=== PATIENT | female | born 1985 | race Caucasian/White ===

== ENCOUNTER → 2016-08-13 07:20 | Observation (INO) ==
--- NOTE | 2016-08-13 07:14 | OB Labor Progress Note ---
Date of Encounter: 08/13/16 Time of Encounter: 07:13 Labor Progress Note - Plan Plan: patient is a 30 y/o @ 30+ weeks who presented for a labor eval, she was evaluated and deemed not to be in labor. ok for discharge, FHT CAT 1.
== END | disposition home or self-care (01) ==
LOC: 1NENULAB
PROVIDERS: ADMIT Student in an Organized Health Care Education/Training Program; ATTEND Student in an Organized Health Care Education/Training Program

== ENCOUNTER 2016-08-14 09:55 | Inpatient (IN) ==
[2016-08-14] MEDS ORDERED: Famotidine 20 MG/2 ML VIAL IVP PRN (10:21)
[2016-08-14] MEDS ORDERED: Ondansetron 4 MG/2 ML VIAL IVP PRN (10:21)
[2016-08-14] MEDS ORDERED: Naloxone 0.4 MG/ML INJ IVP PRN (10:21)
[2016-08-14] MEDS ORDERED: *HR* Nalbuphine 20 MG/ML AMPUL IVP PRN (10:22)
[2016-08-14] MEDS ORDERED: Penicillin G Potassium 5,000,000 UNIT in D5% in Water (Mini-Bag+) 100 ML IVPB ONE (10:23)
--- NOTE | 2016-08-14 10:34 | OB/GYN History & Physical ---
Date of Encounter: 08/14/16 Time of Encounter: 10:28 Assessment and Plan (1) 38 weeks gestation of Current visit: Yes Status: Acute (2) SROM (spontaneous rupture of membranes) Current visit: Yes Status: Acute Admit for expectant mamagement. GBS positive: begin PCN ppx. Mildly elevated blood pressure on admission. Pt has not taken Metropolol today. Will get PIH labs. Epidural if requested. Will augment labor with Pitocin if needed. Anticpate . (3) Positive GBS test Current visit: Yes Status: Acute (4) Mitral valve prolapse of mother during Current visit: Yes Status: Acute (5) Chronic hypertension affecting Current visit: Yes Status: Acute History of Present Illness Chief complaint: leaking fluid HPI: Ms. Rea is a 30 year old female presenting at 38w1d with c/o leaking fluid. She report that she woke up around 0245 this am and was soaked with clear fluid. She has continued to leak intermittently since. She reports the fluid is colorless but cloudy with white particles. She has started having contractions also. No other complaints today. Good FM. Her blood type is A positive. Rubella immune. Serologies negative. Her glucola was 171 with a normal 3 hour GTT. GBBS is positive and pt is not allergic to PCN. Past Med Surg Social Fam HX - Past Medical History Medical history: other Psychiatric history: no psych history - Past Surgical History Surgical History: cholecystectomy - Social History Smoking Status: Never smoker Smokeless Tobacco Status: No Alcohol use: none Drug use: none - Family History Father Living Status: Still Living Obstetrical History - Pregnancies : 1 Para: 0 Medications and Allergies Metoprolol [Lopressor] 12.5 mg PO DAILY 08/13/16 [History] Ranitidine HCl [Zantac] 150 mg PO DAILY 08/13/16 [History] Allergies acetaminophen [From Percocet] Adverse Reaction (Verified 08/13/16 05:01) Hives albuterol Adverse Reaction (Verified 08/13/16 05:01) Seizure cefdinir [From Omnicef] Adverse Reaction (Verified 08/13/16 05:01) Hives Oxycodone [From Percocet] Adverse Reaction (Verified 08/13/16 05:01) Hives Review of System OB All systems PM: reviewed and no additional remarkable complaints except as stated Exam - Constitutional Constitutional: well developed, well nourished, no acute distress - HEENT HEENT: Mucus Membranes Moist - Lungs Respiratory exam: CTAB - Cardiovascular Cardiovascular exam: RRR, +S1, +S2 - Abdomen Abdomen: Present: gravid, non tender - Vulva Vulva: bilateral: normal - Vagina Vagina: Present: normal moisture - Cervix Dilation: 1 Effacement: 70 Station: -2 - Uterus Uterus exam: Present: normal size (EFW by leopolds 7 1/2 lbs) - Anus/Rectum Anus/Rectum: Present: normal perianal skin Results All other labs normal. - VTE Reasons for not Prescribing Prophylaxis: Treatment not Indicated - Low risk for VTE
[2016-08-14 11:00] LABS: Basophils % 0.2 %; Eosinophils % 0.3 %; Hematocrit 38.6 % (35.3-44.9); Hemoglobin 12.6 g/dL (11.5-15.4); Immature Granulocytes % 0.6 % (0-4); Lymphocytes # 1.8 K/mcL (0.6-4.6); Lymphocytes % 16.7 %; Mean Corpuscular HGB Conc 32.6 g/dL (31.6-35.5); Mean Corpuscular Hemoglobin 29.1 pg (28.0-33.3); Mean Corpuscular Volume 89.1 fL (83.0-100.0); Mean Platelet Volume 10.5 fL (9.4-12.4); Monocytes # 0.6 K/mcL (0.0-1.3); Monocytes % 5.4 %; Neutrophils # 8.3 K/mcL (1.6-8.9); Platelet Count 234 K/mcL (140-400); Red Blood Count 4.33 M/mcL (3.82-4.97); Red Cell Distribution Width 13.9 % (11.5-14.5); Segmented Neutrophils % 76.8 %
[2016-08-14 11:22] LABS: Alanine Aminotransferase 11 Units/L (0-55); Aspartate Amino Transferase 15 Units/L (5-34); BUN/Creatinine Ratio 13 (6-26); Blood Urea Nitrogen 10 mg/dL (7-20); Lactate Dehydrogenase 189 Units/L (159-327); Uric Acid 5.2 mg/dL (2.6-6.0); eGFR For African Americans > 60 (> 60); eGFR For Non-African Americans > 60 (> 60)
[2016-08-14] MEDS: Ringers Solution, Lactated 1,000 ML IVC SCH ×2 (11:25→19:42)
[2016-08-14] MEDS ORDERED: Oxytocin 20 units/ LR 1000 mL 20 UNIT/1,000 ML BAG IVC SCH (12:30)
--- NOTE | 2016-08-14 13:52 | OB Labor Progress Note ---
Date of Encounter: 08/14/16 Time of Encounter: 13:50 Labor Progress Note - Subjective Subjective: Pt reports increasing discomfort with contractions. - Cervix Cervix: 1/70/-2 - Heart Tones Heart Tones: Category I - Bowdens Bowdens: irregular, unable to assess with pt in lateral position. - Interventions Interventions: IUPC placed - Plan Plan: Continue to monitor and titrate pitocin. Continue GBS ppx. Epidural when requested. Anticipate .
[2016-08-14] MEDS ORDERED: Penicillin G Potassium 2,500,000 UNIT in D5% in Water 100 ML IVPB SCH (15:00)
[2016-08-14] MEDS: Penicillin G Potassium 2,500,000 UNIT in D5% in Water 100 ML IVPB SCH ×2 (15:31→19:42)
--- NOTE | 2016-08-14 16:35 | OB Labor Progress Note ---
Date of Encounter: 08/14/16 Time of Encounter: 16:33 Labor Progress Note - Subjective Subjective: Pt with severe pain at this time. Pain management options discussed. SHe is not a candidate for epidural due to herniated discs. Will plan for fentanyl. - Cervix Cervix: 2/90/-1 - Heart Tones Heart Tones: Category I - Interventions Interventions: FSE placed - Plan Plan: Continue to monitor. Anticipate .
[2016-08-14] MEDS ORDERED: *HR* FentaNYL (PF) 100 MCG/2 ML VIAL ONE ×3 (17:10→19:37)
[2016-08-14] MEDS: *HR* FentaNYL (PF) 100 MCG/2 ML VIAL IVP PRN ×2 (17:21→18:29)
[2016-08-14] MEDS ORDERED: *HR* FentaNYL (PF) 100 MCG/2 ML VIAL IVP PRN (19:32)
--- NOTE | 2016-08-14 21:15 | OB Labor Progress Note ---
Date of Encounter: 08/14/16 Time of Encounter: 21:10 Labor Progress Note - Subjective Subjective: Patient still doing well with her contractions. We are unable to get her the epidural all anesthesia have decided it is not in her best interest due to her history of potential herniated disks in her complaining of bilateral radiculopathy. We have been using fentanyl to try and control her pain is taken the edge off are not really helping. is having episodes of what looked like late decelerations but they will then resolve on their own. Contractions appeared to be adequate. She prefers to be sitting versus lying in bed try to encourage her to try to stay in the bed or knee-chest all the strip does not look reactive. - Cervix Cervix: 4-5/100/0 - Heart Tones Heart Tones: heart tones 120s 130s has lost variability patient did just recently received some fentanyl - [place]: Contractions every 2 minutes adequate - Plan Plan: We will continue close observation we will hold any additional fentanyl at this time until strip becomes more reassuring.
[2016-08-14 21:44] LABS: Protein/Creatinine Ratio,Urine 0.09 mg/mg (0-0.20)
[2016-08-14] MEDS ORDERED: Metoclopramide 10 MG/2 ML VIAL IVP PRN (21:45)
[2016-08-14] MEDS ORDERED: *HR* Propofol 200 MG/20 ML VIAL IVP ONE ×2 (21:50→21:54)
[2016-08-14] MEDS ORDERED: *HR* Morphine Sulfate/PF 5 MG/10 ML AMPUL ONE (21:51)
[2016-08-14] MEDS ORDERED: *HR* Succinylcholine 200 MG/10 ML VIAL IVP ONE (21:52)
[2016-08-14] MEDS ORDERED: *HR* Phenylephrine 10 MG/ML VIAL ONE (21:52)
[2016-08-14] MEDS ORDERED: EPHEDrine 50 MG/ML VIAL ONE (21:53)
[2016-08-14] MEDS ORDERED: Clindamycin 900 MG/50 ML 900 MG/50 ML IV.SOLN IVPB ONE (21:53)
[2016-08-14] MEDS ORDERED: *HR* Oxytocin 10 UNIT/ML VIAL IM ONE (21:54)
[2016-08-14] MEDS ORDERED: Ringers Solution, Lactated 1,000 ML ONE (21:55)
[2016-08-14] MEDS ORDERED: *HR* HYDROmorphone (PF) 1 MG/ML SYRINGE IVP PRN (22:24)
[2016-08-14] MEDS ORDERED: *HR* Promethazine 25 MG/ML VIAL IVP PRN (22:24)
--- NOTE | 2016-08-14 22:24 | OB Labor Progress Note ---
Date of Encounter: 08/14/16 Time of Encounter: 21:50 Labor Progress Note - Subjective Subjective: Called to see patient requesting primary section. Patient states she cannot longer tolerate the contractions and just wants to proceed on with section. I tried everything I could possibly do to try and relieve her pain with narcotics and positional change unsuccessfully. At this point we have to on the patient's wishes. Baby has been having a strip that has not been and that reassuring so I am okay proceeding on with a section at this time. - Heart Tones Heart Tones: heart tones in the 120s with accelerations at this time. - [place]: Contractions every 2 minutes adequate - Plan Plan: Pitocin is off patient will be prepped for a primary low transverse section anesthesia has been notified and at bedside
[2016-08-14] MEDS ORDERED: Ketorolac 30 MG/ML VIAL ONE (22:27)
--- NOTE | 2016-08-14 22:30 | OB/GYN Procedure Note ---
Section - Date of procedure: 08/14/16 Preop diagnosis: other (Intrauterine at 38 1/7 weeks, desires primary low transverse section, nonreassuring heart tones) Post-op diagnosis: same Procedure: primary low transverse Surgeon: Mehul Patel Estimated blood loss (cc): 500 Auto Painter: Ashley Mobley ([id number]) Anesthesiologist: Nettie Garcia Software Project Engineer: Angelica Sanchez Anesthesia Type: General section complications: none Disposition: L&D Recovery Room Specimens: Placenta - Infant (s) A Infant Delivery Date: 08/14/16 Infant Delivery Time: 22:24 Presentation: vertex Position: ROP Route of delivery: other ( section) Gender: Male Viability: Viable Pounds: 7 Ounces: 1 Gram Weight: 3.21 kg at 1 minute: 8 at 5 minutes: 9 Shoulder Dystocia: not encountered Placenta: complete extraction - Narrative Narrative: Patient is a 30-year-old 1 para 0 at 38-1/7 weeks who presented to labor and delivery with complaint of spontaneous rupture membranes at approximately 2 AM. Patient was grossly ruptured on admission and was 1 cm. Patient was augmented with Pitocin. Patient was dubious positive penicillin was also started. When patient arrived she informed us that she had a questionable history of herniated disks in the lumbar region with a possible spinal fracture in the past and was having complaints of radiculopathy periodically. We were unable to document this due to the diagnosis been made later than 6-7 years ago and all the information has been purged from the system. Because we have no tissue diagnosis we were unable to get the patient on epidural. Patient's contractions became adequate with Pitocin every 2 minutes and she was making cervical change patient could not tolerate the contractions. We attempted to use fentanyl to control her pain it was not too much with patient's pain but was causing some issues with the tracing. Patient was having episodes of late decelerations after taking the medication. When we informed the patient we will not be able to give her any more narcotics patient requested a primary section. Procedure: Patient was taken the operating room where she was placed in the dorsal supine position prepped and draped in usual fashion. Timeout was then obtained once this was complete general anesthesia was administered once asleep pain and still incision was made with a scalpel carried down through the underlying tissue to the fascia was identified. Fascia was nicked in the midline extended laterally with the Smith scissors. The superior and inferior edges of the fascia were asked and from the underlying rectus muscles. Rectus muscles were in the midline parietal peritoneum was identified tented up and entered sharply. This was extended superiorly and inferiorly with Metzenbaum scissors. The bladder blade was inserted and vesicouterine peritoneum was identified tented up and extended laterally. Bladder flap was created digitally the lower uterine segment was incised with the scalpel extended laterally with digital manipulation. Membranes were previously ruptured infant's head was then disengaged out of the pelvis and was noted to be in a right occiput posterior presentation. 's head was then fully delivered there was no nuchal infant was then brought out through the incision cord was clamped and cut and infant was handed off to the waiting pediatric team. Cord blood was collected placenta was then manually removed uterus exteriorized and cleaned of all clots and debris. The lower uterine segment was closed using 0 Vicryl in a running locking stitch by a 2 layer closure. We Had good hemostasis. The gutters were cleaned of all clots and debris and copiously irrigated with water with no active bleeding. As we were closing the fascia anesthesia noticed the urine to be blood-tinged we looked back in and she had some bleeding from the bladder reflection but I could not identify any disruption in the bladder. We did some cauterization to some vessels reidentified the bleeding and then Silvestre was applied to the raw surface. We observed for. At time no active bleeding noted and proceeded to close the fascia. The fascia was then closed using a #1 stratafix in a running stitch and the skin was closed using a 4-0 Vicryl in subcuticular manner. All needles lap sponge counts were correct 3 and she did receive preoperative antibiotics
--- NOTE | 2016-08-14 22:35 | Anesthesia Evaluation PreOp ---
Date of Encounter: 08/14/16 Time of Encounter: 21:55 - Past History Planned Operation: Primary C-S Cardiac History: Other (Mitral valve prolapse) Pulmonary History: Denies Any Significant HX [employer] MANAGER History: Other (Herniated disks per patient with radiculopathy/possible lumbar fractures) Other Medical History: Denies Any Significant HX Anesthesia History: No Prior Anesthetic Complications Alcohol Use: none Drug use: none Medications and Allergies Metoprolol [Lopressor] 12.5 mg PO DAILY 08/13/16 [History] Ranitidine HCl [Zantac] 150 mg PO DAILY 08/13/16 [History] Allergies acetaminophen [From Percocet] Adverse Reaction (Verified 08/13/16 05:01) Hives albuterol Adverse Reaction (Verified 08/13/16 05:01) Seizure cefdinir [From Omnicef] Adverse Reaction (Verified 08/13/16 05:01) Hives Oxycodone [From Percocet] Adverse Reaction (Verified 08/13/16 05:01) Hives - Meds/Allergy Pre-op Review Medications Reviewed: Yes Allergies Reviewed: Yes Beta Blockers on Current Med List: No Anesthesia Results - Labs 08/14/16 10:50 08/14/16 10:53 Anesthesia Exam Weight: 103 kg NPO (# of Hours): >> 8 hrs - HEENT Pupil (Motor): Pupils equal, EOMI Mallampati: I Teeth: Normal Oral Opening: Greater than 3 - [employer] GENERAL MANAGER LOC: Oriented [employer]AL MANAGER Motor: Normal RUE, Normal LUE, Normal RLE, Normal LLE, Normal Face - Cardiac Rhythm: Regular - Pulmonary Breath Sounds: bilateral Clear Respiratory Effort: Symmetrical Anesthesia Assess/Plan ASA Score: 2 Modified Nayana Scale for Level of Consciousness: Cooperative, oriented, and tranquil Anesthetic Plan: General Monitoring Plan: Standard Monitors Recovery Plan: PACU
[2016-08-14] MEDS ORDERED: *HR* HYDROmorphone (PF) 1 MG/ML SYRINGE ONE (22:37)
[2016-08-14] MEDS ORDERED: *HR* Rocuronium Bromide 50 MG/5 ML VIAL ONE (22:46)
[2016-08-14] MEDS ORDERED: Neostigmine Methylsulfate 3 MG/3 ML SYRINGE ONE (23:14)
[2016-08-15] MEDS ORDERED: Oxytocin 20 units/ LR 1000 mL 20 UNIT/1,000 ML BAG IV SCH ×2 (02:38)
[2016-08-15] MEDS ORDERED: *HR* HYDROmorphone 20 MG/20 ML PCA IVC PRN (02:38)
[2016-08-15] MEDS ORDERED: Metoclopramide 10 MG/2 ML VIAL IVP PRN (02:38)
[2016-08-15] MEDS ORDERED: Ibuprofen 600 MG TABLET PO PRN (02:38)
[2016-08-15] MEDS ORDERED: Sennosides 8.6 MG TABLET PO PRN (02:38)
[2016-08-15] MEDS ORDERED: Simethicone 80 MG TAB.CHEW PO PRN (02:38)
[2016-08-15] MEDS ORDERED: Ondansetron 4 MG/2 ML VIAL IVP PRN (02:38)
[2016-08-15 04:09] LABS: Hematocrit 32.7 % (35.3-44.9); Immature Granulocytes % 0.6 % (0-4); Lymphocytes # 0.9 K/mcL (0.6-4.6); Lymphocytes % 4.5 %; Mean Corpuscular Hemoglobin 29.5 pg (28.0-33.3); Mean Corpuscular Volume 89.3 fL (83.0-100.0); Mean Platelet Volume 10.4 fL (9.4-12.4); Monocytes % 4.7 %; Platelet Count 223 K/mcL (140-400); Red Blood Count 3.66 M/mcL (3.82-4.97); Red Cell Distribution Width 13.7 % (11.5-14.5); Segmented Neutrophils % 90.2 %
[2016-08-15 04:11] LABS: Hemoglobin 10.8 g/dL (11.5-15.4); Neutrophils # 18.5 K/mcL (1.6-8.9)
[2016-08-15] MEDS ORDERED: Ringers Solution, Lactated 1,000 ML IVC ONE (08:22)
--- NOTE | 2016-08-15 08:47 | OB/GYN Progress Note ---
Date of Encounter: 08/15/16 Time of Encounter: 08:45 - Assessment and Plan (1) Mitral valve prolapse of mother during Current Visit: Yes Status: Acute (2) Chronic hypertension affecting Current Visit: Yes Status: Acute BP normal . Continue to monitor. (3) delivery delivered Current Visit: Yes Status: Acute Will given IV fluid bolus due to low UOP. Will d/c mariscal once UOP adequate. Await spontaneous void. Subjective - Subjective Interval history: Pt with low UOP overnight. She has not yet ambulated. Mariscal indwelling. Patient reports: appetite normal, pain well controlled [place]: doing well Objective - Vital Signs Latest vital signs: Vital Signs Temp Pulse Resp BP Pulse Ox 08/15/16 08:12 98.1 F 76 14 125/72 96 08/15/16 05:00 98.0 F 80 16 119/61 95 08/15/16 04:05 12 08/15/16 04:01 97.9 F 83 12 97 08/15/16 03:10 98.0 F 84 12 125/67 97 08/15/16 02:50 97.9 F 96 12 125/74 97 08/15/16 02:20 97.9 F 88 16 122/70 95 Intake and Output 08/14/16 08/15/16 08/15/16 23:59 07:59 15:59 Intake Total 1100 / 1100 Balance 1100 / 1100 Intake: IV Fluids 1100 / 1100 Lactated Ringers 1,000 ML 1000 / 1000 @ 125 mls/hr IVC .Q8H DEREK Rx#:[id number] Pfizerpen 2,500,000 UNIT 100 / 100 In Dextrose 5% 100 ML @ 200 mls/hr IVPB Q4H DEREK Rx#:[id number] Other: Weight 101.2 kg Patient Weight 08/15/16 23:59 Weight 101.2 kg - Exam Lungs: bilateral: normal Chest: Normal S1, Normal S2 Extremities: Present: normal, edema (1+ bilaterally) Abdomen: Present: soft Incision: Present: dressed (YUKO dressing dry and intact) Uterus: Present: firm - Labs Labs: Laboratory Results - last 24 hr 08/14/16 08/14/16 08/14/16 10:50 10:50 10:53 WBC 10.8 RBC 4.33 Hgb 12.6 Hct 38.6 MCV 89.1 MCH 29.1 MCHC 32.6 RDW 13.9 Plt Count 234 MPV 10.5 Immature Gran % 0.6 Seg Neutrophils % 76.8 Lymphocytes % 16.7 Monocytes % 5.4 Eosinophils % 0.3 Basophils % 0.2 Neutrophils # 8.3 Lymphocytes # 1.8 Monocytes # 0.6 Eosinophils # 0.0 Basophils # 0.0 BUN 10 Creatinine 0.78 Est GFR ( Amer) > 60 Est GFR (Non-Af Amer) > 60 BUN/Creatinine Ratio 13 Uric Acid 5.2 AST 15 ALT 11 Lactate Dehydrogenase 189 Urine Creatinine 132 Protein/Creatinin Ratio 0.09 Urine Total Protein 12 08/15/16 03:54 WBC 20.5 H D RBC 3.66 L Hgb 10.8 L D Hct 32.7 L MCV 89.3 MCH 29.5 MCHC 33.0 RDW 13.7 Plt Count 223 MPV 10.4 Immature Gran % 0.6 Seg Neutrophils % 90.2 Lymphocytes % 4.5 Monocytes % 4.7 Eosinophils % 0.0 Basophils % 0.0 Neutrophils # 18.5 H Lymphocytes # 0.9 Monocytes # 1.0 Eosinophils # 0.0 Basophils # 0.0 BUN Creatinine Est GFR ( Amer) Est GFR (Non-Af Amer) BUN/Creatinine Ratio Uric Acid AST ALT Lactate Dehydrogenase Urine Creatinine Protein/Creatinin Ratio Urine Total Protein
[2016-08-15] MEDS: Prenatal Vit/FA 1 EACH TABLET PO SCH (09:01)
[2016-08-15] MEDS: Famotidine 20 MG TABLET PO SCH (09:02)
[2016-08-15] MEDS: Ringers Solution, Lactated 1,000 ML IVC SCH (16:56)
[2016-08-16] MEDS: Ringers Solution, Lactated 1,000 ML IVC SCH (04:11)
[2016-08-16 07:57] VITALS: BP 120/74
--- NOTE | 2016-08-16 09:31 | Discharge Summary ---
Date of Encounter: 08/16/16 Time of Encounter: 09:29 - Discharge Diagnosis (1) Mitral valve prolapse of mother during Priority: Secondary Status: Acute (2) Chronic hypertension affecting Priority: Secondary Status: Acute (3) delivery delivered Priority: Primary Status: Acute Comments: Pt reports feeling exhausted and dizzy this am. She feels the dizziness is related to lack of sleep. She denies passing flatus as well. She is voiding spontaneously. Pain well controlled with POULTRY AND FISH BUTCHER but pt desires [place] rather than POULTRY AND FISH BUTCHER. - Discharge Medications Prescriptions: HYDROcodone/Acet 5/325 mg [[place] 5-325 mg] 1 tab PO Q4HR PRN #30 tablet PRN Reason: Pain Ibuprofen [Motrin] 600 mg PO Q6HR PRN #60 tablet PRN Reason: Cramping Docusate [Colace] 100 mg PO BID #60 capsule Home Medications: Metoprolol [Lopressor] 12.5 mg PO DAILY 08/13/16 [History] Ranitidine HCl [Zantac] 150 mg PO DAILY 08/13/16 [History] Docusate [Colace] 100 mg PO BID #60 capsule 08/16/16 [Rx] HYDROcodone/Acet 5/325 mg [[place] 5-325 mg] 1 tab PO Q4HR PRN #30 tablet [Rx] Ibuprofen [Motrin] 600 mg PO Q6HR PRN #60 tablet 08/16/16 [Rx] Vit/FA 1 each PO DAILY tablet 08/16/16 [Rx] Simethicone [Gas-X] 80 mg PO TID PRN #0 tab.chew 08/16/16 [Rx] Allergies/Adverse Reactions: Allergies acetaminophen [From Percocet] Adverse Reaction (Verified 08/13/16 05:01) Hives albuterol Adverse Reaction (Verified 08/13/16 05:01) Seizure cefdinir [From Omnicef] Adverse Reaction (Verified 08/13/16 05:01) Hives Oxycodone [From Percocet] Adverse Reaction (Verified 08/13/16 05:01) Hives Data Procedures and tests throughout hospitalization: Laboratory Tests 08/14/16 08/14/16 08/14/16 10:50 10:50 10:53 WBC 10.8 RBC 4.33 Hgb 12.6 Hct 38.6 MCV 89.1 MCH 29.1 MCHC 32.6 RDW 13.9 Plt Count 234 MPV 10.5 Immature Gran % 0.6 Seg Neutrophils % 76.8 Lymphocytes % 16.7 Monocytes % 5.4 Eosinophils % 0.3 Basophils % 0.2 Neutrophils # 8.3 Lymphocytes # 1.8 Monocytes # 0.6 Eosinophils # 0.0 Basophils # 0.0 BUN 10 Creatinine 0.78 Est GFR ( Amer) > 60 Est GFR (Non-Af Amer) > 60 BUN/Creatinine Ratio 13 Uric Acid 5.2 AST 15 ALT 11 Lactate Dehydrogenase 189 Urine Creatinine 132 Protein/Creatinin Ratio 0.09 Urine Total Protein 12 08/15/16 03:54 WBC 20.5 H D RBC 3.66 L Hgb 10.8 L D Hct 32.7 L MCV 89.3 MCH 29.5 MCHC 33.0 RDW 13.7 Plt Count 223 MPV 10.4 Immature Gran % 0.6 Seg Neutrophils % 90.2 Lymphocytes % 4.5 Monocytes % 4.7 Eosinophils % 0.0 Basophils % 0.0 Neutrophils # 18.5 H Lymphocytes # 0.9 Monocytes # 1.0 Eosinophils # 0.0 Basophils # 0.0 BUN Creatinine Est GFR ( Amer) Est GFR (Non-Af Amer) BUN/Creatinine Ratio Uric Acid AST ALT Lactate Dehydrogenase Urine Creatinine Protein/Creatinin Ratio Urine Total Protein Date of admission: 08/14/16 09:55 Primary care physician: Vikash Underwood Discharging clinician: Lisa Zhong Anticipated date of discharge: 08/16/16 - Patient Status Disposition: Home, Self-Care Condition: Good Functional capacity at discharge: independent ambulation Overall status at discharge: patient is progressing back to baseline - Discharge Instructions Follow Up With: Vikash Underwood MD [Primary Care Provider] - Dunia Knight DO [Partnered Physician] - Additional Instructions: Perineal Care: Always wipe front to back Change your pad frequently Use your april bottle with warm water and spray front to back Do not douche, use tampons, have sexual intercourse or put anything in your vagina for 4-6 weeks after delivery Bleeding: Vaginal bleeding can last up to 6 weeks Your menstrual period may return as early as 6 weeks after you are discharged from the hospital [place]/Stitches Care: Vaginal Delivery Vaginal stitches will dissolve within 4-6 weeks Follow perineal care instructions Care Stitches will dissolve on their own If you have edwin, they will need to be removed in the doctors office within 5-7 days. You may shower with stitches or edwin Drip plan or soapy water over the incision to clean. Pat dry gently with a clean towel. Make sure you completely dry under the skin folds DO NOT USE powders, lotions, rubbing alcohol or hydrogen peroxide on or around your incision. This will slow your wound healing It is normal to have soreness, burning, tingling, itchiness and/or numbness as your incision heals Activity: Rest frequently Do not lift anything heavier than a gallon of milk, up to 10-15 pounds No driving for 1-2 weeks for Vaginal delivery No driving for 2-4 weeks for delivery Take stairs slowly, one at a time Gradually increase your daily activity until you are back to your normal routine Do not exercise until you have had your follow-up appointment Bathing: Take a shower daily Do not take a tub bath for the first 4 weeks Diet: Drink plenty of water and fruit juices Eat a well-balanced diet with foods high in fiber such as fruits and vegetables Depression: Your hormones have a major impact on your feelings and emotions. Hormone imbalance may cause changes in your mood, creating unfamiliar thoughts and actions. Support is available to help you understand and cope with these feelings and mood changes. If you answer yes to any of the following questions, please call your health care provider: Are you having trouble sleeping? Are you feeling isolated? Have you lost your appetite? Are you having thoughts of hurting yourself or others? WARNING SIGNS: Heavy bleeding from the vagina (blood is bright red and soaks a sanitary pad in an hour or less.) Passing a blood clot larger than your fist Discharge from the vagina that has a bad odor Temperature over 100.4 F, or if you feel cold and have chills An episiotomy site that is warm, swollen or oozing. Use a mirror if needed Urination (pee) that is painful, very red and swollen or leaking fluid An incision that is painful, very red and swollen and leaking fluid An incision that has come open Breasts that are painful or full with flu like symptoms Redness, warmth or swelling in the calf of your leg Trouble breathing, dizziness, visual disturbance or faintness *Notify your health care provider immediately or go to the nearest Emergency Room if you experience any of the above signs.* To contact the nurses station 24 hours a day, For non-urgent, routine questions, please call the office at - Diet and Activity Activity: increase activity as tolerated Diet: advance to your usual diet Hospital Course Reason for admission: rupture of membranes Delivery: section Episiotomy: none Laceration: none Other procedures: none complications: none Discharge diagnosis: IUP at term delivered [place] baby: male Hospital course: - Date of procedure: 08/14/16 Preop diagnosis: other (Intrauterine at 38 1/7 weeks, desires primary low transverse section, nonreassuring heart tones) Post-op diagnosis: same Procedure: primary low transverse Surgeon: Mehul Patel Estimated blood loss (cc): 500 Senior Estimator: Ashley Mobley ([email or web address]) Anesthesiologist: Nettie Garcia Rn Advanced: Angelica Sanchez Anesthesia Type: General section complications: none Disposition: L&D Recovery Room Specimens: Placenta - Infant (s) Infant A Delivery Date: 08/14/16 Delivery Time: 22:24 Presentation: vertex Position: ROP Route of delivery: other ( section) Gender: Male Viability: Viable Pounds: 7 Ounces: 1 Gram Weight: 3.21 kg at 1 minute: 8 at 5 minutes: 9 Shoulder Dystocia: not encountered Placenta: complete extraction Time Attestation: Total time spent providing and/or coordinating discharge services: Time Spent: Less than 30 minutes - VTE Reasons for not Prescribing Prophylaxis: Treatment not Indicated - Low risk for VTE Documentation of Mechanical Device: Intermittent pneumatic compression device Exam - Constitutional Vitals: Temp Pulse Resp BP Pulse Ox 98 F 90 16 120/74 98 08/16/16 07:55 08/16/16 07:55 08/16/16 07:55 08/16/16 07:55 08/16/16 07:55 General appearance IM: A&O X 3, pleasant, no acute distress - Respiratory Respiratory exam: Present: CTAB - Cardiovascular Cardiovascular exam IM: Present: RRR, +S1, +S2 - GI/Abdominal GI/Abdominal exam IM: soft, no peritoneal signs Incision: dressed (YUKO dry and intact) - Rectal Rectal exam: deferred - Uterine Tone: Firm - Extremities Exam Extremities exam IM: Present: normal inspection, pedal edema (2+ edema bilaterally) - Neurological Exam Neurological exam: normal gait, oriented X3 - Psychiatric Additional comments: reports good mood - Other Additional findings: OARRS reviewed
[2016-08-16] MEDS ORDERED: *HR* HYDROcodone/Acet 5/325 mg TABLET PO PRN (09:33)
[2016-08-16] MEDS: Famotidine 20 MG TABLET PO SCH (10:19)
[2016-08-16] MEDS: Prenatal Vit/FA 1 EACH TABLET PO SCH (10:19)
== END 2016-08-16 12:40 | disposition home or self-care (01) | DRG 765 ==
LOC: 1NENULAB → OBSVTOIN 09:55 → 1NENUOBS 08-15 02:38
PROVIDERS: ADMIT Obstetrics & Gynecology; ATTEND Obstetrics & Gynecology